=== PATIENT | female | born 1970 | race African-American/Black ===

== ENCOUNTER 2025-02-17 22:52 | Inpatient (IN) | payer OTHER ==
[~2025-02-17] VITALS: Ht 177.8 cm; Wt 123.5 kg
[2025-02-18] VITALS (13 sets, daily range): BP systolic 118–148; BP diastolic 45–83; TEMP 98.1–99.2; O2SAT 96–100
[2025-02-18 00:02] LABS: BASOPHILS % (AUTO) 0.5 % (0.0-2.0); EOSINOPHILS # (AUTO) 0.1 K/uL (0.0-0.7); EOSINOPHILS % (AUTO) 1.2 % (0.0-7.0); LYMPHOCYTES # (AUTO) 3.3 K/uL (0.8-4.8); LYMPHOCYTES % (AUTO) 40.2 % (20.5-51.5); MEAN CORPUSCULAR HEMOGLOBIN 20.9 uug (24.7-32.8); MEAN CORPUSCULAR HGB CONC 30 g/dL (32.3-35.6); MEAN CORPUSCULAR VOLUME 68.6 fL (75.5-95.3); MONOCYTES # (AUTO) 0.8 K/uL (0.1-1.30); MONOCYTES % (AUTO) 9.3 % (0.0-11.0); NEUTROPHILS % (AUTO) 48.8 % (38.5-71.5); PLATELET COUNT (AUTO) 243 K/uL (179-408); RED BLOOD CELL COUNT(AUTO) 2.97 MIL/uL (3.63-4.92); RED CELL DISTRIBUTION WIDTH 20.3 % (12.3-17.7); WHITE BLOOD COUNT (AUTO) 8.2 K/uL (3.8-11.8)
[2025-02-18 00:05] LABS: DIFFERENTIAL COMMENT 1; HEMATOCRIT 20.4 % (31.2-41.9); HEMOGLOBIN 6.2 g/dL (10.9-14.3)
[2025-02-18 00:09] LABS: CALCIUM 7.9 mg/dL (8.5-10.1); CREATININE 1.1 mg/dL (0.6-1.3); POTASSIUM 3.5 mmol/L (3.5-5.1)
[2025-02-18 00:11] LABS: IRON, SERUM 12 ug/dL (50-175)
[2025-02-18 00:15] LABS: ALBUMIN 3.6 g/dL (3.4-5.0); BILIRUBIN,DIRECT 0.1 mg/dL (0.0-0.2); BILIRUBIN,TOTAL 0.6 mg/dL (0.2-1.0); TOTAL PROTEIN, SERUM 7.4 g/dL (6.4-8.2)
[2025-02-18 00:25] LABS: FERRITIN 5 ng/mL (8-252)
[2025-02-18] MEDS: IV NS 1000 ML 1,000 ML IV PRN (00:26)
[2025-02-18] MEDS ORDERED: ACETAMINOPHEN 325 MG TABLET PO PRN (00:30)
[2025-02-18] MEDS ORDERED: ONDANSETRON 4 MG/2 ML VIAL IV PRN (00:30)
[2025-02-18] MEDS ORDERED: MAGNESIUM HYDROXIDE 30 ML LIQUID UDC PO PRN (00:30)
[2025-02-18] MEDS: IV NS 1000 ML 1,000 ML IV SCH (02:00)
[2025-02-18 06:54] LABS: BASOPHILS % (AUTO) 0.4 % (0.0-2.0); EOSINOPHILS # (AUTO) 0.1 K/uL (0.0-0.7); EOSINOPHILS % (AUTO) 1.5 % (0.0-7.0); HEMATOCRIT 21.1 % (31.2-41.9); LYMPHOCYTES # (AUTO) 2.7 K/uL (0.8-4.8); LYMPHOCYTES % (AUTO) 38.4 % (20.5-51.5); MEAN CORPUSCULAR HEMOGLOBIN 21.7 uug (24.7-32.8); MEAN CORPUSCULAR HGB CONC 31 g/dL (32.3-35.6); MEAN CORPUSCULAR VOLUME 70.3 fL (75.5-95.3); MONOCYTES # (AUTO) 0.6 K/uL (0.1-1.30); NEUTROPHILS # (AUTO) 3.7 K/uL (1.8-8.9); NEUTROPHILS % (AUTO) 51.7 % (38.5-71.5); PLATELET COUNT (AUTO) 224 K/uL (179-408); RED BLOOD CELL COUNT(AUTO) 3.01 MIL/uL (3.63-4.92); RED CELL DISTRIBUTION WIDTH 21.3 % (12.3-17.7); WHITE BLOOD COUNT (AUTO) 7.1 K/uL (3.8-11.8)
[2025-02-18 07:06] LABS: DIFFERENTIAL COMMENT 1; HEMOGLOBIN 6.5 g/dL (10.9-14.3)
[2025-02-18 07:07] LABS: ANISOCYTOSIS 2+; EOSINOPHILS % (MANUAL) 2 % (0-8); HYPOCHROMASIA 2+; LYMPHOCYTES % (MANUAL) 38 % (20-40); MONOCYTES % (MANUAL) 8 % (2-10); NEUTROPHILS % (MANUAL) 52 % (42-75); PLATELET ESTIMATE ADEQUATE
[2025-02-18 07:09] LABS: CREATININE 0.9 mg/dL (0.6-1.3); PHOSPHOROUS 3.8 mg/dL (2.5-4.9); POTASSIUM 3.9 mmol/L (3.5-5.1)
[2025-02-18 07:22] LABS: THYROID STIMULATING HORMONE 1.975 mIU/mL (0.358-3.740)
[2025-02-18] MEDS ORDERED: MULT9LIQ6 PO (10:05)
[2025-02-18] MEDS ORDERED: IRON PO (10:07)
[2025-02-18] MEDS: SOD FERRIC GLUC COMPLX/SUCROSE 125 MG in IV NORMAL SALINE 100 ML IV SCH (15:51)
[2025-02-18 21:38] LABS: *OCCULT BLOOD STOOL NEGATIVE (NEGATIVE)
[2025-02-19 06:33] VITALS: BP 145/80; TEMP 98.4; O2SAT 99
[2025-02-19 07:14] LABS: EOSINOPHILS # (AUTO) 0.1 K/uL (0.0-0.7); EOSINOPHILS % (AUTO) 1.6 % (0.0-7.0); HEMOGLOBIN 8.3 g/dL (10.9-14.3); LYMPHOCYTES # (AUTO) 2.4 K/uL (0.8-4.8); LYMPHOCYTES % (AUTO) 28.4 % (20.5-51.5); MEAN CORPUSCULAR HEMOGLOBIN 22.9 uug (24.7-32.8); MEAN CORPUSCULAR HGB CONC 32 g/dL (32.3-35.6); MEAN CORPUSCULAR VOLUME 72.1 fL (75.5-95.3); MONOCYTES # (AUTO) 0.7 K/uL (0.1-1.30); MONOCYTES % (AUTO) 7.8 % (0.0-11.0); NEUTROPHILS # (AUTO) 5.2 K/uL (1.8-8.9); NEUTROPHILS % (AUTO) 62.2 % (38.5-71.5); PLATELET COUNT (AUTO) 240 K/uL (179-408); RED BLOOD CELL COUNT(AUTO) 3.61 MIL/uL (3.63-4.92); RED CELL DISTRIBUTION WIDTH 23.5 % (12.3-17.7); WHITE BLOOD COUNT (AUTO) 8.4 K/uL (3.8-11.8)
[2025-02-19 07:25] LABS: DIFFERENTIAL COMMENT 1
[2025-02-19 07:26] LABS: CREATININE 0.9 mg/dL (0.6-1.3); MAGNESIUM 1.9 mg/dL (1.8-2.4); PHOSPHOROUS 3.4 mg/dL (2.5-4.9); POTASSIUM 3.7 mmol/L (3.5-5.1)
[2025-02-19] MEDS: MULTIVIT, IRON, MIN NO. 8, FA TABLET PO SCH (08:14)
[2025-02-19] MEDS ORDERED: MINERALS PO SCH (09:00)
[2025-02-19] MEDS ORDERED: MULTIVIT PO SCH (09:00)
[2025-02-19] MEDS ORDERED: [UNRECOGNIZED DRUG - OTHER] PO SCH (09:00)
[2025-02-19 11:51] VITALS: BP 143/75; TEMP 98.7; O2SAT 98
== END 2025-02-19 14:30 | disposition home or self-care (01) | DRG 812 ==
LOC: ER 23:01 → MEDSURG3 02-18 00:27
PROVIDERS: ATTEND Student in an Organized Health Care Education/Training Program
PROC: 30233N1 Transfusion of Nonautologous Red Blood Cells into Peripheral Vein, Percutaneous Approach (ICD-10-PCS; principal; 2025-02-18)
DX: D50.0 Iron deficiency anemia secondary to blood loss (chronic) (principal); N92.4 Excessive bleeding in the premenopausal period; E83.51 Hypocalcemia
CPT/HCPCS: 36415; 83550; 83735; 84100; 84443; 85025; 85730; 86850; 86900; 86901; 86920; A4606; A4663; G0378; J2916; J7040; P9016